=== PATIENT | female | born 1995 | race Caucasian/White ===

== ENCOUNTER 2017-12-02 21:38 | Emergency (ER) | payer MEDICAID ==
[~2017-12-02] VITALS: Ht 157.5 cm; Wt 59.9 kg
[2017-12-02 22:11] VITALS: Ht 157.5 cm; Wt 59.9 kg
[2017-12-03] VITALS: BP 104/59
== END 2017-12-03 | disposition home or self-care (01) ==
LOC: ED 21:38
DX: O26.893 Other specified pregnancy related conditions, third trimester (principal); R21 Rash and other nonspecific skin eruption; Z3A.31 31 weeks gestation of pregnancy
CPT/HCPCS: Q0163